=== PATIENT | male | born 1990 | race African-American/Black ===

== ENCOUNTER 2021-01-23 15:32 | Emergency (ER) | payer OTHER ==
[~2021-01-23] VITALS: Ht 167.6 cm; Wt 68.0 kg
[2021-01-23 15:38] VITALS: BP 127/72
--- NOTE | 2021-01-23 17:02 | NUR ---
WAS CALLING PT TO TAKE BACK TO BED, PT LWBS NOT IN LOBBY, ADMITTING DOES NOT KNOW WHERE PT WENT.
== END 2021-01-23 17:02 | disposition left against medical advice (07) ==
LOC: MED 15:32
DX: Z53.21 Procedure and treatment not carried out due to patient leaving prior to being seen by health care provider (principal)